=== PATIENT | male | born 1940 | race Caucasian/White ===

== ENCOUNTER → 2021-12-15 | Outpatient (CLI) | payer MEDICARE, OTHER ==
--- NOTE | 2021-12-15 22:42 | CT ---
EXAMINATION TYPE: CT abdomen pelvis wo con CT DLP: 515.60 mGycm, Automated exposure control for dose reduction was used. DATE OF EXAM: 12/15/2021 7:05 PM COMPARISON: None. CLINICAL INDICATION:Male, 81 years old with history of R31.0 GROSS HEMATURIA; Gross hematuria TECHNIQUE: Standard CT of the abdomen and pelvis without IV or oral contrast. Lack of IV or oral co ntrast limits evaluation of solid and hollow organ viscera. Coronal and sagittal reformats were perfo rmed. FINDINGS: LOWER CHEST: Unremarkable ABDOMEN LIVER: Unremarkable GALLBLADDER AND BILE DUCTS: Layering increased densities within the lumen consistent with gallstones are present. PANCREAS: Lipomatous atrophy changes. SPLEEN: Scattered calcified granulomas. ADRENAL GLANDS: Unremarkable. KIDNEYS AND URETERS: Left renal pelvis 9 mm calculus. Additional bilateral subcentimeter nonobstructi ve calculi. Right renal cysts measuring up to 3.5 cm. PELVIS BLADDER: Nondistended suboptimal visualization due to streak artifact from hip prostheses. There is s uggestion of high density area within the bladder lumen. REPRODUCTIVE: Prostate is enlarged in size measuring 6.3 cm in transverse dimension. ABDOMEN & PELVIS STOMACH AND BOWEL: No evidence of bowel obstruction. Moderate stool burden throughout the colon. Sma ll hiatal hernia is present. PERITONEUM: No evidence of pneumoperitoneum or free fluid. 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 There is marked s evere atherosclerosis of the arterial vasculature. MUSCULOSKELETAL: No acute osseous abnormalities. 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 There is no evidence of periprosthetic loosening or perip rosthetic fracture. Hardware appears intact. Mild degeneration changes of the sacroiliac joints bilat erally. LYMPH NODES: No gross evidence for lymphadenopathy. SOFT TISSUE/ABDOMINAL WALL: Unremarkable IMPRESSION: 1. Bladder lumen high density suggested within the bladder lumen which is suboptimally visualized du e to hip prostheses streak artifact. Further evaluation with cystoscopy is recommended. 2. Left renal pelvis 9 mm calculus, no significant hydronephrosis. Additional bilateral nonobstructi ng calculi. 3. Pancreatic fatty atrophy changes. 4. Cholelithiasis. 5. Infrarenal aortic fusiform dilation measuring up to 3.8 cm. 6. Prostatomegaly. Correlate with serum PSA 7. Small hiatal hernia.
== END | disposition home or self-care (01) ==
LOC: RADCTMAIN 18:37
PROVIDERS: ATTEND Urology
DX: N20.0 Calculus of kidney (principal); K80.20 Calculus of gallbladder without cholecystitis without obstruction; K44.9 Diaphragmatic hernia without obstruction or gangrene; N40.0 Benign prostatic hyperplasia without lower urinary tract symptoms
CPT/HCPCS: 74176